=== PATIENT | male | born 1970 | race Caucasian/White ===

== ENCOUNTER 2018-04-08 09:12 | Inpatient (IN) ==
[2018-04-08] MEDS ORDERED: NS 1,000 ML IV ONE ×3 (09:38→14:15)
[2018-04-08 10:04] LABS: BASO# 0.04 X1000 (0.0-0.2); BASO% 0.2 % (0.0-0.8); HEMATOCRIT 51.3 % (42.0-52.0); HEMOGLOBIN 17.2 g/dL (14.0-18.0); IMM GRAN# 0.06 X1000 (0.0-0.04); IMM GRAN% 0.3 % (0.0-0.5); LYMPH# 1.42 X1000 (1.2-3.4); LYMPH% 7.1 % (20.5-51.1); MCH 30.4 PG (27-31); MCHC 33.5 g/dL (33-37); MCV 90.8 FL (81-99); MONO% 6.5 % (1.7-9.3); MPV 9.8 FL (7.4-10.4); NEUT# 17.28 X1000 (1.4-6.5); NEUT% 85.9 % (42.2-75.2); PLT 302 X1000 (130-400); RBC 5.65 XMIL (4.7-6.1); RDW 13.6 % (11.5-14.5)
[2018-04-08 10:16] LABS: AGAP 16; ALB/GLOB RATIO 1.1; ALKALINE PHOSPHATASE 105 U/L (32-122); AMYLASE 85 U/L (20-200); BUN 20 mg/dL (8-22); CALCIUM 10.5 mg/dL (8.8-10.2); CHLORIDE 96 mmol/L (98-107); COSMO 267; CREATININE 1.2 mg/dL (0.7-1.2); ESTIMATED GFR > 60; GLUCOSE 134 mg/dL (70-104); GOT 16 U/L (10-34); GPT 14 U/L (10-44); LIPASE 41 U/L (13-60); POTASSIUM 3.6 mmol/L (3.5-5.1); SODIUM 131 mmol/L (136-145); TCO2 19 mmol/L (25-35); TOTAL PROTEIN 9.7 g/dL (6.3-8.3)
[2018-04-08 13:48] LABS: URINE SOURCE CLEAN CATCH
[2018-04-08 13:56] LABS: BILIRUBIN URINE NEGATIVE (NEGATIVE); BLOOD URINE MODERATE (NEGATIVE); COLOR ORANGE; GLUCOSE URINE NEGATIVE (NEGATIVE); KETONE URINE NEGATIVE (NEGATIVE); LEUKOCYTES URINE LARGE (NEGATIVE); NITRITE URINE NEGATIVE (NEGATIVE); PH URINE 5.5; PROTEIN URINE 70 mg/dL (NEGATIVE); SP GRAVITY URINE 1.012; TURBIDITY URINE TURBID (CLEAR); UROBILINOGEN URINE NORMAL (NORMAL)
[2018-04-08 14:05] LABS: UR EPITHELIAL CELLS <10 /HPF (<10); URINE BACTERIA 4+ /HPF; URINE RBC <10 /HPF (<10); URINE WBC TNTC /HPF (<10)
[2018-04-08 14:15] LABS: URINE CASTS NONE SEEN; URINE CRYSTALS NONE SEEN; URINE SMALL ROUND CELLS TRANS PRESENT; URINE YEAST NONE SEEN
[2018-04-08] MEDS ORDERED: VANCOMYCIN 1 GM/NS 1 GM/250 ML IVPB IV ONE (14:16)
[2018-04-08 14:32] LABS: ALLEN TEST NO; BE -2.4 mmoll (-3.0-3.0); BLOOD TYPE ARTERIAL; HCO3-(ACT) 22.9 mmoll (20.0-26.0); METHB 1.5 % (0.0-1.5); O2(CT) 20.8 mL/dL (15.0-23.0); O2HB 93.1 % (95.0-99.0); PCO2(98.6) 24 mmHg (35-45); PO2(98.6) 68 mmHg (60-100); SAMPLE BLOOD; SAO2 97.2 % (95.0-100.0); THB 15.9 g/dL (11.5-17.4)
[2018-04-08 14:33] LABS: MODALITY ROOM AIR
[2018-04-08 14:39] LABS: ACETAMINOPHEN 6.8 ug/mL (10-30); SALICYLATES < 3.00 mg/dL (3-10)
[2018-04-08 14:51] LABS: FREE T4 1.02 ng/dL (0.93-1.70); TSH 0.8 uIUmL (0.27-4.20)
[2018-04-08 14:55] LABS: UR AMPHETAMINES QUAL NONE DETECTED (NONE DETECT); UR BARBITUATES QUAL NONE DETECTED (NONE DETECT); UR BENZODIAZEPIN QUAL NONE DETECTED (NONE DETECT); UR CANNABINOIDS QUAL PRESUMPTIVE POSITIVE (NONE DETECT); UR COCAINE QUAL NONE DETECTED (NONE DETECT); UR METHADONE QUAL NONE DETECTED (NONE DETECT); UR OPIATES QUAL NONE DETECTED (NONE DETECT); UR OXYCODONE QUAL NONE DETECTED (NONE DETECT); UR PCP QUAL NONE DETECTED (NONE DETECT)
[2018-04-08 15:12] LABS: ACETONE SERUM NEGATIVE (NEGATIVE)
--- NOTE | 2018-04-08 15:23 | Diag Imaging Result Doc PS360 ---
EXAM: CT THORAX/ABD/PELVIS W/CON HISTORY: sepsis, source unknown TECHNIQUE: 1. CT chest with intravenous contrast 2. CT abdomen and pelvis with intravenous contrast COMPARISON: None. FINDINGS: Chest: No pleural effusions. No cardiomegaly. No thoracic aortic aneurysm or dissection. No enlarged lymph nodes. There are multiple old right rib fractures. Moderate emphysematous changes with scarring in the apices. No infiltrates or consolidation. No bronchiectasis. Abdomen and pelvis: There is mild fatty infiltration of the liver. No focal hepatic abnormality. Normal spleen, pancreas, and adrenal glands. No calcified gallstones or adjacent inflammation. There is a typical enhancement of the upper right kidney. No hydronephrosis. No aortic aneurysm. No bowel obstruction. The urinary bladder is distended. There is mild thickening to the wall. Normal prostate. No ascites. No abscess. IMPRESSION: Chest: 1. Emphysema with fibrosis 2. No pneumonia Abdomen and pelvis: 1. Pyelonephritis and possible cystitis 2. Fatty infiltration of the liver This exam was performed using automated exposure control, adjustment of mA or kV according to patient size, and/or use of iterative reconstruction technique. Electronically signed by Indio Thomas 04/08/2018 3:21 PM
--- NOTE | 2018-04-08 15:26 | Diag Imaging Result Doc PS360 ---
EXAM: CT HEAD W/O CONTRAST HISTORY: ams TECHNIQUE: CT head without contrast COMPARISON: None. FINDINGS: No parenchymal hemorrhage. No epidural or subdural hematoma. No subarachnoid hemorrhage. 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 Postsurgical changes in the right temporal region. Atrophy or small old left temporal infarct. No mass identified on this noncontrasted exam. No hydrocephalus. No sinus opacification. IMPRESSION: 1.No hemorrhage 2.Small old left parietal infarct This exam was performed using automated exposure control, adjustment of mA or kV according to patient size, and/or use of iterative reconstruction technique. Electronically signed by Indio Thomas 04/08/2018 3:23 PM
[2018-04-08] MEDS ORDERED: MOTRIN PO ONE (16:56)
[2018-04-08] MEDS: TYLENOL PO PRN (16:57)
[2018-04-08] MEDS: NS 1,000 ML IV SCH (16:58)
[2018-04-08] MEDS: ZOSYN 3.375 GM in NS 50 ML IV SCH ×2 (16:58→21:14)
--- NOTE | 2018-04-08 17:37 | HISTORY AND PHYSICAL ---
PRIMARY CARE PHYSICIAN: None. CHIEF COMPLAINT: Fever, chills. HISTORY OF PRESENT ILLNESS: Mr. Leonard is a 48-year-old male with a history of traumatic brain injury, traumatic pneumothorax with subsequent permanent cognitive disability, questionable seizures and nicotine dependence who presents with malaise, fever and chills. The patient is unable to give any type of history; his sister at the bedside is able to answer most questions. Mr. Leonard is an unfortunate victim of a traumatic brain injury as he fell off a roof last November suffering major intracranial hemorrhage and pneumothorax requiring craniotomy and chest tube placement. Since that time, he suffered what appears to be irreversible cognitive disability. Yesterday, he actually came to the ER and was dropped off by one of his brothers because he was complaining of fever and chills. He had a chest x-ray done in the ER waiting room and then left without being seen. He then walked to his sister's house which was apparently within close proximity. When he arrived at her house, he was visibly shaking and complaining of fever and chills. She tried to get him to come back to the ER last night but he refused. However, his temperature was 102.8 today and he reluctantly agreed to come back to the ER. In the ER, labs were done which showed a white count of 20,000 with an elevated anion gap metabolic acidosis. Chest x-ray done yesterday evening was negative for acute process although there was question of fibrotic changes around the area of his chest tube. The sister states that he has not been throwing up or c/o diarrhea. He has not been coughing anything up or complaining of any focal pain. He is slightly hypotensive with a blood pressure in the high 90s to low 100s and he is tachycardic in the 120s and his O2 SAT is around 93% on room air. He will need admission for further treatment and observation. PAST MEDICAL HISTORY: 1. 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 2. Traumatic pneumothorax, status post chest tube placement, since resolved. 3. Nicotine dependence. 4. Question of narcotic abuse. His sister does state that he will take an occasional pain pill illicitly. PAST SURGICAL HISTORY: He had a craniotomy and chest tube placement in 11/2017. SOCIAL HISTORY: He smokes a pack a day. He lives with his brother who is currently not present. He is not . He has no children. He is permanently disabled. FAMILY HISTORY: Noncontributory. REVIEW OF SYSTEMS: Unable to obtain. ALLERGIES: Toradol and tramadol. MEDICATIONS: None. PHYSICAL EXAMINATION: VITAL SIGNS: Blood pressure is 94/47, heart rate is 116, O2 SAT 95% on room air , temperature is 99.1, respirations of 30. GENERAL: This is a disheveled and chronically ill-appearing 48-year-old male lying in hospital bed in moderate distress. NEUROLOGIC: The patient is lying in bed with his covers over his head and he is able to talk but his speech pattern is almost incomprehensible. He is able to state that he is at [facility] but otherwise disoriented. He does follow commands without focal deficits. HEENT: Head is atraumatic. He does have scarring to the scalp and his face appears slightly asymmetric. Pupils are equal, round and reactive to light. Oral mucosa is extremely dry with very poor dentition. NECK: Supple. Trachea is midline. There is no JVD. CHEST: Diminished at the bases but essentially clear to auscultation. Around the area of his right thorax, mid-axillary line, a stitch was noted in the area of his previous chest tube. It has clearly been there for some time. This stitch was pulled and sent to lab for culture. CV: Regular rate and rhythm. S1, S2 noted. GI: He does have some grimacing to palpation but his abdomen is overall soft, with normoactive bowel sounds. EXTREMITIES: Without edema. Pulses are 1+ bilaterally. DIAGNOSTIC DATA: Chest x-ray done yesterday evening shows increased interstitial markings believed to be fibrosis with multiple old right rib fractures. There are no pleural effusions, cardiomegaly or consolidations. LABORATORY DATA: WBC 20.1, hemoglobin 17.2, hematocrit 51.3, platelet count 302 ,000. Sodium 131, potassium 3.6, chloride 96, CO2 19, anion gap 16, BUN 20, creatinine 1.2, glucose 134, calcium 10.5, magnesium 2.1. LFTs within normal limits. Protein 9.7, albumin 5, amylase 85, lipase 41, lactic acid 1.4. ASSESSMENT AND PLAN: 1. Sepsis: The patient has a white count of 20,000 with a left shift. He is also acidotic with a normal lactate. Unclear as to the source at this time. Given the level of confusion and agitation, he will need to be fully evaluated for source. We will check a head CT as well as thorax, abdomen and pelvis. We will give him 1 g of vancomycin and Zosyn now , obtain blood and sputum cultures. We will also send stitch that was embedded in the chest wall for culture as well, although that area was without any real signs of infection. We are also awaiting urinalysis. We will continue aggressive fluid resuscitation as he is quite volume depleted. 2. Encephalopathy: His sister at the bedside states that his mentation is at current baseline. However, he is a bit more agitated than usual. We are checking a head CT, ABGs, drug screen, alcohol level, thyroid function, B12, folate and scanning his head, thorax, abdomen and pelvis. 3. Elevated anion gap, metabolic acidosis: The patient has a normal lactate but he is volume depleted but we will check ABGs, salicylate, acetaminophen and acetone levels. We will continue aggressive fluid resuscitation and go from there. 4. History of traumatic brain injury with subsequent cognitive disability: Aware. Head CT is pending. 5. DVT prophylaxis with SCDs. Further recommendations to follow. Patient seen and examined by me face to face, all the laboratory, vitals signs and images were reviewed, his abdomen CT scan is positive for right nephrolithiasis, he is having fever, more confused, weak, he will be placed on antibiotics, IV fluids, will be transfer to [facility] unit, I agree with the ACTIVITIES LEADER's assessment and plan, Herminio Haro MD. Dictated by OBDULIO Betancur for Herminio Lazo MD cc: OBDULIO Betancur MD [facility]
[2018-04-09] MEDS: NS 1,000 ML IV SCH ×4 (00:32→23:59)
[2018-04-09] MEDS: TYLENOL PO PRN ×3 (01:41→23:59)
[2018-04-09] MEDS: ZOSYN 3.375 GM in NS 50 ML IV SCH ×4 (02:27→21:36)
[2018-04-09 06:17] LABS: BASO# 0.03 X1000 (0.0-0.2); BASO% 0.2 % (0.0-0.8); EOS# 0.01 X1000 (0.0-0.7); EOS% 0.1 % (0.0-10.0); HEMATOCRIT 40.7 % (42.0-52.0); HEMOGLOBIN 13.6 g/dL (14.0-18.0); IMM GRAN# 0.03 X1000 (0.0-0.04); IMM GRAN% 0.2 % (0.0-0.5); LYMPH# 0.82 X1000 (1.2-3.4); LYMPH% 6.3 % (20.5-51.1); MCH 31.2 PG (27-31); MCHC 33.4 g/dL (33-37); MCV 93.3 FL (81-99); MONO# 0.87 X1000 (0.11-0.59); MONO% 6.6 % (1.7-9.3); MPV 9.8 FL (7.4-10.4); NEUT# 11.34 X1000 (1.4-6.5); NEUT% 86.6 % (42.2-75.2); PLT 197 X1000 (130-400); RBC 4.36 XMIL (4.7-6.1); RDW 13.5 % (11.5-14.5)
[2018-04-09 06:19] LABS: AGAP 9; ALBUMIN 3.5 g/dL (3.5-5.0); ALKALINE PHOSPHATASE 71 U/L (32-122); BUN 14 mg/dL (8-22); CALCIUM 8.6 mg/dL (8.8-10.2); CHLORIDE 109 mmol/L (98-107); COSMO 277; CREATININE 0.9 mg/dL (0.7-1.2); ESTIMATED GFR > 60; GLUCOSE 119 mg/dL (70-104); GOT 14 U/L (10-34); GPT 13 U/L (10-44); MAGNESIUM 1.9 mg/dL (1.5-2.7); POTASSIUM 3.8 mmol/L (3.5-5.1); SODIUM 138 mmol/L (136-145); TCO2 20 mmol/L (25-35); TOTAL BILIRUBIN 0.37 mg/dL (0.20-1.00)
[2018-04-09 07:56] LABS: BANDS 2 % (0-1); LYMPHS 6 % (21-51); SEGS 90 % (42-75)
--- NOTE | 2018-04-09 07:59 | PROGRESS NOTE ---
DATE: 04/09/2018 SUBJECTIVE: Patient is still complaining of chills but he feels a little bit better compared with yesterday. Also, he is more awake. He has a history of traumatic brain injury resulting in permanent cognitive disability but he is answering most of my questions and following commands. I will start this patient on a diet. OBJECTIVE: Vital Signs: Temperature 98.1 degrees, pulse 85, respiratory rate 24, blood pressure 101/60, oxygen saturation 96 on room air. HEENT: Head normocephalic. No trauma. PERRLA. Poor dentition. Neck: Supple. No JVD. Central trachea. Chest: Clear to auscultation. No wheezing. No rales. Abdomen: Soft, nontender, nondistended. No hepatosplenomegaly. Extremities: No edema. No clubbing. No cyanosis. Neurological Examination: The patient is alert. He is oriented. He is following commands. Moving all 4 extremities. Laboratory: WBC 13, hemoglobin 13.6, hematocrit 40.7, platelets 197,000. Sodium 138, potassium 3.8, chloride 109, bicarbonate 20, BUN 14, creatinine 0.9, glucose 119, calcium 8.6, albumin 3.5. ASSESSMENT AND PLAN: 1. Sepsis, likely secondary to right pyelonephritis. We will continue with intravenous antibiotics, Zosyn. WBC decreased from 20 to 13. The patient seems to be more awake and hydrated. He is not complaining of burning sensation today but yesterday, he told me that he was having dysuria. Continue with Tylenol as needed for fever. 2. Right pyelonephritis. As above. 3. Encephalopathy. This patient has a baseline cognitive disorder but today, he seems to be more awake and cooperative. He is following commands. Probably, this is his baseline. 4. Anion gap metabolic acidosis, resolved, likely secondary to the infectious process and dehydration. 5. History of traumatic brain injury with subsequent cognitive disability, aware. 6. Deep vein thrombosis prophylaxis with sequential compression devices. 7. Drug abuse. We have a positive urine toxicology that showed cannabinoids. This patient has been advised against drug use. I will continue with daily cessation education. cc: Herminio Lazo MD
[2018-04-09] MEDS ORDERED: MOTRIN PO ONE (13:13)
[2018-04-10] MEDS: NS 1,000 ML IV SCH ×5 (03:01→22:34)
[2018-04-10] MEDS: ZOSYN 3.375 GM in NS 50 ML IV SCH ×4 (03:25→20:37)
[2018-04-10 05:51] LABS: BASO# 0.01 X1000 (0.0-0.2); BASO% 0.1 % (0.0-0.8); EOS# 0.02 X1000 (0.0-0.7); EOS% 0.3 % (0.0-10.0); HEMATOCRIT 38.3 % (42.0-52.0); HEMOGLOBIN 12.9 g/dL (14.0-18.0); IMM GRAN# 0.02 X1000 (0.0-0.04); IMM GRAN% 0.3 % (0.0-0.5); LYMPH# 1.03 X1000 (1.2-3.4); MCH 31.2 PG (27-31); MCHC 33.7 g/dL (33-37); MCV 92.5 FL (81-99); MONO# 0.82 X1000 (0.11-0.59); MONO% 10.4 % (1.7-9.3); MPV 10.2 FL (7.4-10.4); NEUT% 75.9 % (42.2-75.2); PLT 194 X1000 (130-400); RBC 4.14 XMIL (4.7-6.1); RDW 13.2 % (11.5-14.5)
[2018-04-10 06:04] LABS: AGAP 10; ALBUMIN 3.4 g/dL (3.5-5.0); ALKALINE PHOSPHATASE 66 U/L (32-122); BUN 9 mg/dL (8-22); CALCIUM 8.9 mg/dL (8.8-10.2); CHLORIDE 106 mmol/L (98-107); COSMO 269; CREATININE 0.7 mg/dL (0.7-1.2); ESTIMATED GFR > 60; GLUCOSE 111 mg/dL (70-104); GOT 18 U/L (10-34); GPT 16 U/L (10-44); MAGNESIUM 1.6 mg/dL (1.5-2.7); POTASSIUM 3.7 mmol/L (3.5-5.1); SODIUM 135 mmol/L (136-145); TCO2 19 mmol/L (25-35); TOTAL BILIRUBIN 0.34 mg/dL (0.20-1.00); TOTAL PROTEIN 6.9 g/dL (6.3-8.3)
[2018-04-10] MEDS: TYLENOL PO PRN ×3 (07:34→22:33)
--- NOTE | 2018-04-10 08:50 | PROGRESS NOTE ---
DATE: 04/10/2018 SUBJECTIVE: This patient is still having fever. WBC today is normal, decreased from 20 a couple days ago to 13 yesterday and today is 7.9. Urine output is adequate. The BUN and creatinine are normal but the patient is still having fever. Since this patient has a right pyelonephritis, since this patient is male, I would like to rule out any other problems like prostatitis, prostate abscess, or urinary retention. I will ask the urology department to evaluate this patient. OBJECTIVE: Vital Signs: Temperature 102.5 degrees, pulse 85, respiratory rate 21, blood pressure 104/63, oxygen saturation 96 on room air. HEENT: Head normocephalic. No trauma. PERRLA. Poor dentition. Neck: Supple. No JVD. Central trachea. Chest: Clear to auscultation. No wheezing. No rales. Abdomen: Soft, nontender, nondistended. No hepatosplenomegaly. Extremities: No edema. No clubbing. No cyanosis. Neurological Examination: At this moment, this patient is alert and oriented. He is following commands. He moves all 4 extremities. Laboratory: WBCs 7.9, hemoglobin 12.9, hematocrit 38.3, platelets 194,000. Sodium 135, potassium 3.5, chloride 106, bicarbonate 19, BUN 9, creatinine 0.7, glucose 111, calcium 8.9, albumin 3.4. ASSESSMENT AND PLAN: 1. Sepsis, likely secondary to right pyelonephritis. We will continue with intravenous Zosyn. WBC is normal today but he is still having fever. I will continue with intravenous fluids. I have consulted the urology department to evaluate the possibility of prostatitis or any other problem since he is a male with a urinary tract infection/pyelonephritis. 2. Right pyelonephritis, as above. 3. Encephalopathy. This patient has a baseline cognitive disorder but, today, he seems to be more awake and cooperative. He is following commands. He is answering some of my simple questions. 4. Anion gap metabolic acidosis, resolved. 5. History of traumatic brain injury with subsequent cognitive disability, aware. 6. Deep vein thrombosis prophylaxis with sequential compression devices. 7. Drug abuse. We have a positive urine toxicology that showed cannabinoids. This patient has been advised against drug use. I will continue with daily cessation education. 8. This patient states that he is feeling better and now he is not complaining of any kind of burning sensation during urination. Urine culture showed gram-negative rods. I will continue with Zosyn and I will monitor, pending urology evaluation. cc: Herminio Lazo MD
--- NOTE | 2018-04-10 10:23 | EKG Report ---
Test Performed on : 04/08/2018 09:34:34 AM Test Reason : ED. No order in [place] Blood Pressure : / mmHG Vent. Rate : 083 BPM Atrial Rate : 083 BPM P-R Int : 164 ms QRS Dur : 104 ms QT Int : 338 ms P-R-T Axes : 074 033 070 degrees QTc Int : 397 ms Normal sinus rhythm. Normal ECG When compared with ECG of 21-JUN-2013 12:26, No significant change was found Unconfirmed Result
[2018-04-10] MEDS: MOTRIN PO PRN (15:14)
[2018-04-10] MEDS: FLOMAX PO SCH (20:37)
[2018-04-11] MEDS: ZOSYN 3.375 GM in NS 50 ML IV SCH ×4 (03:29→20:47)
[2018-04-11] MEDS: MOTRIN PO PRN ×2 (03:34→18:11)
--- NOTE | 2018-04-11 05:33 | CONSULTATION ---
DATE OF CONSULTATION: 04/10/2018 ATTENDING PHYSICIAN: Sharron. REFERRING PHYSICIAN: Hospitalist. HISTORY OF PRESENT ILLNESS: This 48-year-old male was admitted with fevers, chills, and lower back pain. Evaluation revealed on CT scan focal right pyelonephritis, with bladder wall thickening. He denies any problems voiding. He states prior to this incident, he does not remember having any voiding problems. He has had traumatic brain injury, and has significant cognitive disability. He states he is not taking any medications for his prostate. He states he has never had kidney stones. PAST MEDICAL HISTORY: Taken from his chart, is traumatic brain injury, with permanent cognitive disability. He states he has no other medical problems. He states he is not taking any medications. PAST SURGICAL HISTORY: Craniotomy and chest tube placement after falling from a roof. Appendectomy. SOCIAL HISTORY: He uses tobacco, and states he smokes marijuana. He denies alcohol use. ALLERGIES: He is allergic to tramadol, ketorolac, and another medication that is listed on his chart. REVIEW OF SYSTEMS: He states he thinks he is in good health, and denies any problems with diabetes, heart disease, strokes, seizures, pulmonary, or bowel problems. Again, he has significant cognitive disability. PHYSICAL EXAMINATION: General: A thin, age-apparent, normally-developed white male, who is cooperative. HEENT: Normal for age. Lungs: Clear. Cardiovascular: Regular rate and rhythm. Abdomen: Well-healed right lower quadrant scar consistent with appendectomy. Soft, nontender. No hepatosplenomegaly or masses. Normal bowel sounds. Back: No CVA tenderness. : Uncircumcised male. Foreskin retracts. Both testes are down and palpably normal. No inguinal hernias. Rectal: Normal sphincter tone. Prostate about 30 g, smooth, and symmetric. Extremities: No clubbing, cyanosis, or edema. Neurologic: No focal deficits. IMPRESSION: 1. Febrile urinary tract infection. 2. Enlarged prostate, with some obstructive voiding symptoms. RECOMMEND: 1. Flomax 0.4 mg a day. 2. Continue IV antibiotics until afebrile, and then culture specific antibiotics. Thank you for this consultation. cc: Kamran Walker MD
[2018-04-11] MEDS: TYLENOL PO PRN ×3 (06:28→22:10)
[2018-04-11] MEDS: NS 1,000 ML IV SCH ×2 (06:30→15:04)
[2018-04-11 08:37] LABS: AGAP 10; ALB/GLOB RATIO 0.9; ALKALINE PHOSPHATASE 75 U/L (32-122); BUN 5 mg/dL (8-22); CALCIUM 8.3 mg/dL (8.8-10.2); CHLORIDE 107 mmol/L (98-107); COSMO 271; CREATININE 0.5 mg/dL (0.7-1.2); ESTIMATED GFR > 60; GLUCOSE 104 mg/dL (70-104); GOT 18 U/L (10-34); GPT 18 U/L (10-44); MAGNESIUM 1.7 mg/dL (1.5-2.7); POTASSIUM 3.3 mmol/L (3.5-5.1); SODIUM 137 mmol/L (136-145); TCO2 20 mmol/L (25-35); TOTAL BILIRUBIN 0.41 mg/dL (0.20-1.00); TOTAL PROTEIN 6.2 g/dL (6.3-8.3)
[2018-04-11 08:50] LABS: BASO# 0.01 X1000 (0.0-0.2); BASO% 0.2 % (0.0-0.8); EOS# 0.06 X1000 (0.0-0.7); EOS% 1.1 % (0.0-10.0); HEMOGLOBIN 11.5 g/dL (14.0-18.0); IMM GRAN# 0.05 X1000 (0.0-0.04); IMM GRAN% 0.9 % (0.0-0.5); LYMPH# 0.85 X1000 (1.2-3.4); LYMPH% 14.9 % (20.5-51.1); MCH 30.9 PG (27-31); MCHC 33.8 g/dL (33-37); MCV 91.4 FL (81-99); MONO# 0.79 X1000 (0.11-0.59); MONO% 13.9 % (1.7-9.3); MPV 10.3 FL (7.4-10.4); NEUT# 3.93 X1000 (1.4-6.5); PLT 173 X1000 (130-400); RBC 3.72 XMIL (4.7-6.1); RDW 12.9 % (11.5-14.5); WBC 5.69 X1000 (4.8-10.8)
--- NOTE | 2018-04-11 16:58 | PROGRESS NOTE ---
DATE: 04/11/2018 SUBJECTIVE: He came in with fever and chills. Has a history of traumatic brain injury, traumatic pneumothorax, subsequent permanent cognitive disability, questionable seizures, nicotine dependence. Presents with malaise, fever, and chills. The patient unable to give any type of history. His sister was at the bedside, answered most of the questions. Mr. Leonard is an unfortunate victim of a traumatic brain injury. He fell off a roof last November, suffering major intracranial hemorrhage and pneumothorax requiring craniotomy, chest tube placement. Since that time, he appears to have irreversible cognitive disability. The day before admission on 04/08/2018, he actually came to the emergency room. He was dropped off by his brother because he had complained of fever, chills. Had a chest x-ray done in the emergency room waiting room, and left without being seen. He then walked to his sister's house who was apparently within close proximity. When he arrived at her house, he was visibly shaking, complaining of fever and chills. She tried to get him to come back to the emergency room that night, but he refused. His temperature was 102.8 and he reluctantly agreed to come back to the emergency room where his white count showed 20,000, elevated anion gap, metabolic acidosis. Chest x-ray was negative, although there was question of fibrotic changes around the area where he had a chest tube. He has not been throwing up. No diarrhea. PAST MEDICAL HISTORY: Reviewed again: 1. 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 2. Traumatic pneumothorax, status post chest tube placement. 3. Nicotine dependence. 4. Questionable narcotic abuse. Sister states that he will take an occasional pain pill illicitly. PAST SURGICAL HISTORY: He has had a craniotomy and chest tube placement 11/2017. OBJECTIVE: So, he was admitted with sepsis, white count of 20,000, acidotic, normal lactate and felt it was probably urinary tract. Had CT of the thorax, abdomen, pelvis. All are unremarkable for acute pathology and confusion with encephalopathy. He has showed steady improvement but he is still spiking temperatures, still an elevated white count. Dr. Walker has been consulted. He felt he had febrile urinary tract infection, large prostate, some obstructive voiding symptoms. He has him on Flomax 0.4 mg a day and continue IV antibiotics though he is afebrile. He really wanted to go home today, but he spiked another temperature of 102 degrees. He agreed to stay in the hospital. Pulse is 96, respirations 21, blood pressure 141/78. Pupils are equal and round. Lungs are clear in all lung calderon. Cardiovascular exam regular rhythm and rate without murmur or S3. Abdomen is soft. Skin is warm and dry and he is requesting go home. LABS: White count yesterday was down to 5690, hematocrit 34, platelet count 173,000. Electrolytes: Sodium 137, potassium 3.3, chloride 107, bicarb 20, BUN 5, creatinine 0.5. ASSESSMENT AND PLAN: 1. Urinary tract infection with still some fever. Continue present antibiotics. Would like him to be 48 hours without fever. He is on intravenous Zosyn. 2. Right pyelonephritis, which is improving. 3. Encephalopathy. He has baseline cognitive disorder from his injury. His confusion is better. 4. Anion gap metabolic acidosis, resolved. 5. Traumatic brain injury with subsequent cognitive disability. 6. Deep venous thrombosis prophylaxis. Sequential compression devices in place. 7. History of drug abuse. Positive urine toxicology showed cannabinoids. So, I advised avoidance of drug use including marijuana. 8. Continue present orders Flomax 0.4 mg at bedtime, normal saline at 125 mL an hour and Zosyn 3.375 g IV q.6 hours. cc: Frank Ibrahim MD
[2018-04-11] MEDS: FLOMAX PO SCH (20:47)
[2018-04-12] MEDS: NS 1,000 ML IV SCH ×4 (00:51→22:17)
[2018-04-12] MEDS: ZOSYN 3.375 GM in NS 50 ML IV SCH ×4 (02:04→20:11)
[2018-04-12] MEDS: MOTRIN PO PRN ×3 (02:04→16:58)
[2018-04-12] MEDS: TYLENOL PO PRN ×2 (10:55→20:11)
[2018-04-12] MEDS ORDERED: MILK OF MAGNESIA PO ONE (12:00)
[2018-04-12] MEDS ORDERED: DULCOLAX PR PRN (12:01)
--- NOTE | 2018-04-12 13:48 | Diag Imaging Result Doc PS360 ---
EXAM: CHEST-2 VIEWS HISTORY: shortness of breath and diminished breath sound TECHNIQUE: Two views COMPARISON: 04/07/2018 FINDINGS: The lungs are hyperexpanded. Mild increased interstitial markings throughout both lungs. No cardiomegaly. There are tiny pleural effusions. No consolidation. There are multiple old rib fractures. IMPRESSION: Increased interstitial markings believed to be fibrosis Electronically signed by Indio Thomas 04/12/2018 1:46 PM
[2018-04-12] MEDS: FLOMAX PO SCH (20:11)
[2018-04-13] MEDS: MOTRIN PO PRN ×3 (01:23→17:50)
[2018-04-13] MEDS: ZOSYN 3.375 GM in NS 50 ML IV SCH ×4 (04:24→20:32)
[2018-04-13] MEDS: TYLENOL PO PRN ×2 (06:15→20:32)
[2018-04-13] MEDS: NS 1,000 ML IV SCH ×2 (09:15→15:18)
--- NOTE | 2018-04-13 19:16 | PROGRESS NOTE ---
DATE: 04/13/2018 SUBJECTIVE: He is feeling much better. He has not had any fever in the last 24 hours. A low- grade at 100.0. OBJECTIVE: Vital Signs: On exam, pulse 69, respirations 20, blood pressure 152/93. Eyes: Pupils are equal, round. Lungs: Are clear in all lung calderon. Cardiovascular: Regular rhythm and rate without murmur or S3. Abdomen: Soft. Skin: Warm and dry. LABS: Urine output 1275 mL. Chest x-ray, increased interstitial markings believed to be fibrosis. That was from yesterday. ASSESSMENT AND PLAN: 1. Urinary tract infection. Would like him to be afebrile for at least 48 hours. He is still on IV Zosyn. 2. Right pyelonephritis, which seems to be improving. 3. Encephalopathy. He has baseline cognitive disorder from an injury. 4. Anion gap acidosis, resolved. 5. Traumatic brain injury and subsequent cognitive disability. 6. Deep venous thrombosis prophylaxis on sequential stockings. cc: Frank Ibrahim MD
[2018-04-13] MEDS: FLOMAX PO SCH (20:32)
[2018-04-14] MEDS: ZOSYN 3.375 GM in NS 50 ML IV SCH ×2 (02:18→09:44)
[2018-04-14] MEDS: NS 1,000 ML IV SCH ×2 (02:36→09:45)
--- NOTE | 2018-04-14 07:25 | PROVIDER DOCUMENTATION ---
This chart was entered by Lisa Solis Scribe, acting as scribe for Christopher Mcneil MD. HPI-General Adult - General Chief Complaint: Possible Sepsis-D Stated Complaint: RETURN/RECHECK Time Seen by Provider: 04/08/18 09:35 Source: patient Allergies/Adverse Reactions: Patient Allergies Allergy/AdvReac Type Severity Reaction Status Date / Time ketorolac tromethamine * Allergy HIVES Verified 04/04/17 14:45 [From Toradol] tramadol Allergy ITCHING Verified 04/04/17 14:45 Home Medications: Home Medication List Medication Instructions Recorded Confirmed Last Taken Type NK [No Home Medications] 04/08/18 04/08/18 Unknown History - History of Present Illness -Gen Adult Nature of Presenting Problems: 48yom c/o body aches, 102 fever, and chills for 2 days with chronic neck pain from previous injury. He reports he came to the [facility] ED last night and LWBS. The patient's sister reports that the patient had a fall accident at work in November 2017, had a craniotomy, and was hospitalized for a month at [facility]. He additionally had rib fractures from the accident. She reports she has noticed personality changes and cognitive changes in the patient since his procedure. The patient did have a vasovagal reaction when blood was drawn and became pale, but has now returned to normal color. He denies any medications or allergies to medications. He denies cough or any new rashes. He denies nausea, vomiting, diarrhea, cp, and sob. Location of Pain/Injury: reports: neck (chronic), generalized (body aches) Pain Radiation: reports: no radiation Quality of Pain: reports: aching Severity: reports: moderate Onset/Duration: reports: 2 days ago Timing: reports: still present, intermittent, constant Context/Activities at Onset: reports: none Modifying Factors: improves with: nothing Associated Symptoms: reports: fever/chills, other (body aches, chronic neck pain from previous injury.) Similar Symptoms Previously?: No Recently seen or treated by another doctor?: No Review of Systems - Adult - REVIEW OF SYSTEMS - ADULT Constitutional: reports: chills, fever Eyes: denies: discharge, dry eyes Ears, Nose, Mouth & Throat: denies: ear discharge, ear pain Cardiovascular: denies: chest pain, palpitations Respiratory: denies: cough, shortness of breath Gastrointestinal: denies: abdominal pain, diarrhea, nausea, vomiting Genitourinary: denies: dysuria, hematuria Musculoskeletal: reports: muscle aches (body aches), neck pain. denies: back pain Integumentary: reports: no symptoms reported Neurological: denies: dizziness/vertigo, headache/migraines Psychiatric: reports: no symptoms reported Endocrine: reports: no symptoms reported Hematologic/Lymphatic: reports: no symptoms reported Allergic/Immunologic: reports: no symptoms reported All Other Systems: Reviewed and Negative Past History - Adult - PAST MEDICAL HISTORY-ADULT Review of Records: reports: Old Records Reviewed, Nursing Assessment Review, Medications Reviewed Major Childhood Illnesses: reports: denies history Cardiovascular: reports: denies history Respiratory: reports: denies history Gastrointestinal: reports: denies history Obstetrical/Gynecological: reports: denies history Genitourinary: reports: denies history Musculoskeletal: reports: chronic pain Neurological: reports: denies history Psychiatric: reports: denies history Endocrine/Immune: reports: denies history Other Conditions: reports: denies history - PRIOR SURGERIES/PROCEDURES Surgical/Procedure History: reports: appendectomy - PRIOR HOSPITALIZATIONS Prior Hospitalizations: reports: for similar symptoms (broken back) - IMMUNIZATION STATUS Childhood Immunizations: See Nurse Assessment Flu Vaccine: See Nurse Assessment - FAMILY HISTORY Family History: reviewed, not pertinent - SOCIAL HISTORY Smoking: cigarettes, less than 1 pack/day Substance Use: denies Living Situation: family Physical Exam-General - PHYSICAL EXAM-ADULT Initial Vital Signs Reviewed: Yes - CONSTITUTIONAL General Appearance: alert, no apparent distress, thin - EYES Eyes: PERRL/EOMI, pink conjunctivae - HEAD, EARS, NOSE, MOUTH & THROAT HENMT: normocephalic/atraumatic, moist mucous membranes - NECK Neck: limited range of motion, other (chronic neck pain from previous injury.) - RESPIRATORY Respiratory: other (dull R side). negative: crackles, rales, rhonchi, wheezing - CARDIOVASCULAR Cardiovascular: no murmur, tachycardia - GASTROINTESTINAL (ABDOMEN) Abdominal Exam: non tender, soft - MUSCULOSKELETAL Extremity: non-tender, no pedal edema - SKIN Integumentary: normal color, warm/dry - NEUROLOGIC Neurologic: grossly normal, no motor/sensory deficits - PSYCHIATRIC Psych/Mental Status: normal mood/affect, normal thought content, normal thought process, oriented x 3 Progress - PLAN OF CARE/RESULTS Progress/Plan/Lab Results: Vital Signs - 8 hr 04/08/18 09:19 04/08/18 09:53 Temperature 99.1 F Pulse Rate 123 H 91 H Respiratory Rate 20 16 Blood Pressure 102/64 94/47 O2 Sat by Pulse Oximetry 95 Laboratory Results - last 24 hr 04/08/18 04/08/18 09:33 09:33 WBC 20.10 H RBC 5.65 Hgb 17.2 Hct 51.3 MCV 90.8 MCH 30.4 MCHC 33.5 RDW Std Deviation 13.6 Plt Count 302 MPV 9.8 Immature Gran % (Auto) 0.3 Neut % (Auto) 85.9 H Lymph % (Auto) 7.1 L Clinch % (Auto) 6.5 Eos % (Auto) 0.0 Baso % (Auto) 0.2 Immature Gran # (Auto) 0.06 H Neut # (Auto) 17.28 H Lymph # (Auto) 1.42 Clinch # (Auto) 1.30 H Eos # (Auto) 0.00 Baso # (Auto) 0.04 Plasma Lactate 1.4 Orders Category Date Time Status AMYLASE [CHEM] Stat Lab 04/08/18 09:33 Received CBC WITH ELECTRONIC DIFF [HEME] Stat Lab 04/08/18 09:33 Completed COMPREHENSIVE METABOLIC PANEL [CHEM] Stat Lab 04/08/18 09:33 Received Flu Swab [INFLUENZA SCREEN A/B] Stat Lab 04/08/18 09:33 Received LACTATE, PLASMA [CHEM] Stat Lab 04/08/18 09:33 Completed LIPASE [CHEM] Stat Lab 04/08/18 09:33 Received URINALYSIS W/POSS RFLX CULT [URINALYSIS] Stat Lab 04/08/18 09:23 Uncollected 0.9% Sodium Chloride Inj [Ns] 1,000 ml Med 04/08/18 09:38 Active IV 999 mls/hr Result Diagrams: 04/11/18 07:35 04/11/18 07:35 - EKG 1 Time of EKG reading by physician:: 09:36 EKG Read and Signed by:: Christopher Mcneil Rate: 83 Rhythm: Normal sinus rhythm Lindsey: normal QRS: normal DE Interval: normal ST Wave: normal - CONSULTS/PCP/HOSPITALIST Notification #1 *Consult/PCP/Hospitalist*: Dr. Clark Time Discussed: 13:24 Consult Disposition: Admit Departure - Departure Date of Disposition Decision: 04/08/18 Time of Disposition Decision: 11:45 DIAGNOSIS: Sepsis Disposition: ADMITTED INPATIENT 09 Certified Medical Emergency: Emergent Condition: Stable - Critical Care Note This patient required my direct & personal management of CC.: No Attestation - Physician/ LINH Attestation Patient care was provided by Advanced Practice Provider:: No The physician spent face to face time with patient:: Yes Advanced Practice Provider documentation review:: Supervising physician onsite and consulted in the evaluation and care of this patient. The physician did have a face to face encounter with the patient. This chart was documented by the indicated scribe, (Lisa Solis, Amie) and accurately reflects the services I performed and decisions made by me, Christopher Mcneil MD, as attested by the provider's signature.
[2018-04-14 08:03] VITALS: BP 139/75
--- NOTE | 2018-04-14 10:36 | DISCHARGE SUMMARY ---
ADMISSION DATE: 04/08/2018 DISCHARGE DATE: 04/14/2018 HISTORY: This is a 48-year-old who presented with fever and chills. He has no primary care physician. He has a history of traumatic brain injury, traumatic pneumothorax, subsequent permanent cognitive disability, questionable seizures, and nicotine dependence, who presented with malaise, fever, and chills. The patient was unable to give any type of history. Sister and family gave most of it. This is an unfortunate victim of a traumatic brain injury, fell off a roof last November with major intracranial hemorrhage pneumothorax requiring craniotomy and chest tube placement came in the day before to the emergency room, dropped off by his brother, and he was complaining of fever and chills, but he left without being seen. He walked to his sister's house, which is apparently in close proximity. When he arrived at her house, he was visibly shaking, complaining of fever and chills. She tried to get him to come back to the emergency room, but he refused. He then developed temperature of 102.8 degrees, and reluctantly agreed to come to the emergency room. He appeared to have sepsis and anion gap metabolic acidosis. He had urinary tract infection treated with IV antibiotics. His cultures grew out Staphylococcus epidermidis and Klebsiella pneumonia. Dr. Daniel Walker was consulted for urology. He had a large prostate, and felt he had febrile urinary tract infection, so we continued antibiotics. He continued to have fevers so kept him until he did not have a fever for 48 hours. We are giving him piperacillin 3.375 g q.6 hours. I am going to put him on Levaquin 750 mg daily, and I will give him enough for 2 more weeks. His urine culture grew out Klebsiella pneumonia, and it was sensitive really to everything and sensitive to Levaquin. We will continue his home medicines of which he was not on any home medicines at home. We also have him on Flomax, and I will continue that. cc: Frank Ibrahim MD
== END 2018-04-14 13:40 | disposition home or self-care (01) | DRG 872 ==
LOC: ED 09:12 → EDIPHOLD 14:31 → SUATTDRO 14:31 → 3S 16:15 → 3N 04-10 10:26
PROVIDERS: ATTEND Emergency Medicine
CPT/HCPCS: 70450; 71020; 71046; 71260; 74177; 80053; 80101; 80196; 80301; 80307; 80320; 80324; 80329; 80345; 80346; 80353; 80358; 80361; 80365; 81001; 82003; 82009; 82055; 82150; 82805; 83605; 83690; 83735; 83992; 84439; 84443; 85025; 87040; 87070; 87077; 87088; 87186; 87275; 87276; 87324; 87804; 93005; 96361; 96365; 99285; A9270; G0431; G0434; G0479; G0480; G6038; G6039; G6040; J2543; J3370; J7030; Q9967

== ENCOUNTER 2018-07-09 12:17 | Observation (INO) ==
[2018-07-09 13:11] LABS: BASO# 0.04 X1000 (0.0-0.2); BASO% 0.5 % (0.0-0.8); EOS# 0.16 X1000 (0.0-0.7); EOS% 2.1 % (0.0-10.0); HEMOGLOBIN 14.8 g/dL (14.0-18.0); IMM GRAN# 0.02 X1000 (0.0-0.04); IMM GRAN% 0.3 % (0.0-0.5); LYMPH# 2.68 X1000 (1.2-3.4); LYMPH% 35.8 % (20.5-51.1); MCH 31.2 PG (27-31); MCHC 35.2 g/dL (33-37); MCV 88.4 FL (81-99); MONO# 0.49 X1000 (0.11-0.59); MONO% 6.5 % (1.7-9.3); MPV 9.8 FL (7.4-10.4); NEUT% 54.8 % (42.2-75.2); PLT 253 X1000 (130-400); RBC 4.75 XMIL (4.7-6.1); RDW 13.7 % (11.5-14.5); WBC 7.49 X1000 (4.8-10.8)
[2018-07-09 13:15] LABS: PROTIME 12.4 Seconds (11.0-16.0)
[2018-07-09 13:16] LABS: INR 0.85; PTT 30.3 Seconds (22.3-41.8)
--- NOTE | 2018-07-09 13:22 | Diag Imaging Result Doc PS360 ---
EXAM: CT HEAD W/O CONTRAST HISTORY: headache TECHNIQUE: CT head without contrast COMPARISON: 06/28/2018 FINDINGS: No parenchymal hemorrhage. No epidural or subdural hematoma. No subarachnoid hemorrhage. No mass identified on this noncontrasted exam. No hydrocephalus. No sinus opacification. IMPRESSION: No hemorrhage. Negative brain CT without contrast. This exam was performed using automated exposure control, adjustment of mA or kV according to patient size, and/or use of iterative reconstruction technique. Electronically signed by Indio Thomas 07/09/2018 1:20 PM
--- NOTE | 2018-07-09 13:27 | Diag Imaging Result Doc PS360 ---
EXAM: CHEST-PORTABLE HISTORY: ams TECHNIQUE: Chest single view COMPARISON: 04/12/2018 FINDINGS: The lungs are well expanded. The heart is not enlarged. The vessels are not distended. There are no infiltrates. No effusion identified. There are multiple old rib fractures. IMPRESSION: No acute abnormality. Electronically signed by Indio Thomas 07/09/2018 1:24 PM
[2018-07-09 13:41] LABS: AGAP 11; ALB/GLOB RATIO 1.7; ALBUMIN 4.5 g/dL (3.5-5.0); ALKALINE PHOSPHATASE 86 U/L (32-122); BUN 10 mg/dL (8-22); CALCIUM 9.5 mg/dL (8.8-10.2); CHLORIDE 105 mmol/L (98-107); CK PROFILE 82 U/L (24-204); COSMO 279; CREATININE 0.7 mg/dL (0.7-1.2); ESTIMATED GFR > 60; GLUCOSE 103 mg/dL (70-104); GOT 17 U/L (10-34); GPT 18 U/L (10-44); POTASSIUM 4.7 mmol/L (3.5-5.1); SODIUM 140 mmol/L (136-145); TCO2 24 mmol/L (25-35); TOTAL BILIRUBIN 0.41 mg/dL (0.20-1.00); TOTAL PROTEIN 7.1 g/dL (6.3-8.3)
[2018-07-09] MEDS ORDERED: TYLENOL PO ONE (16:14)
[2018-07-09 16:43] LABS: URINE SOURCE CLEAN CATCH
[2018-07-09 17:02] LABS: BILIRUBIN URINE NEGATIVE (NEGATIVE); BLOOD URINE NEGATIVE (NEGATIVE); COLOR YELLOW; GLUCOSE URINE NEGATIVE (NEGATIVE); KETONE URINE NEGATIVE (NEGATIVE); LEUKOCYTES URINE NEGATIVE (NEGATIVE); NITRITE URINE NEGATIVE (NEGATIVE); PROTEIN URINE NEGATIVE (NEGATIVE); SP GRAVITY URINE 1.003; TURBIDITY URINE CLEAR (CLEAR); UROBILINOGEN URINE NORMAL (NORMAL)
[2018-07-09 17:03] LABS: UR EPITHELIAL CELLS <10 /HPF (<10); URINE BACTERIA NEGATIVE /HPF; URINE RBC <10 /HPF (<10); URINE WBC <10 /HPF (<10)
--- NOTE | 2018-07-09 17:15 | PROVIDER DOCUMENTATION ---
This chart was entered by Demetria Castelan Scribe, acting as scribe for Alex Mac MD. HPI-Neurological Disorder - General Chief Complaint: Headache Stated Complaint: SLURRED SPEECH,VILA Time Seen by Provider: 07/09/18 15:19 Source: patient Allergies/Adverse Reactions: Patient Allergies Allergy/AdvReac Type Severity Reaction Status Date / Time ketorolac tromethamine * Allergy HIVES Verified 07/03/18 09:56 [From Toradol] tramadol Allergy ITCHING Verified 07/03/18 09:56 Home Medications: Home Medication List Medication Instructions Recorded Confirmed Last Taken Type Gabapentin 300 mg PO QHS #12 cap 06/28/18 Unknown Rx Acetaminophen/Diphenhydramine 1 ea PO Q6H PRN #15 tab 07/03/18 Unknown Rx [Percogesic 325-12.5 mg Tablet] Acetaminophen [Tylenol] 1,000 mg PO Q4H PRN PRN 7 Days #30 07/09/18 Unknown Rx tab - History of Present Illness-Neuro Nature of Presenting Problem: 48 y/o male presents to ED with headache, word salad, and diaphoresis onset this morning. Pt reports he has had the headache since his brain surgery for skull fracture in November. Pt is alert and oriented. Headache Location: reports: global Severity: reports: severe Onset/Duration: reports: this morning Timing: reports: still present Context: reports: other (headache, word salad, diaphoresis) Character of Altered Mental Status: reports: N/A Any recent trauma/injury?: reports: none Character of Deficits: reports: impaired speech New weakness or altered sensation location:: reports: none Cognitive Baseline: alert, oriented x3 Gait Baseline: walks without assistance Associated Symptoms: reports: headache, diaphoretic, other (word salad) Similar Symptoms Previously?: Yes Recently seen or treated by another doctor?: Yes Review of Systems - Adult - REVIEW OF SYSTEMS - ADULT Constitutional: denies: chills, fever Eyes: reports: no symptoms reported Ears, Nose, Mouth & Throat: reports: no symptoms reported Cardiovascular: denies: chest pain, palpitations Respiratory: denies: cough, shortness of breath Gastrointestinal: denies: abdominal pain, diarrhea, nausea, vomiting Genitourinary: reports: no symptoms reported Musculoskeletal: denies: back pain, joint pain Integumentary: reports: other (diaphoresis). denies: hives Neurological: reports: headache/migraines, other (word salad). denies: dizziness/vertigo, seizure Psychiatric: reports: no symptoms reported Endocrine: reports: no symptoms reported Hematologic/Lymphatic: reports: no symptoms reported Allergic/Immunologic: reports: no symptoms reported All Other Systems: Reviewed and Negative Past History - Adult - PAST MEDICAL HISTORY-ADULT Review of Records: reports: Old Records Reviewed, Nursing Assessment Review, Medications Reviewed Major Childhood Illnesses: reports: denies history Cardiovascular: reports: denies history Respiratory: reports: denies history Gastrointestinal: reports: denies history Obstetrical/Gynecological: reports: denies history Genitourinary: reports: denies history Musculoskeletal: reports: chronic pain 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 on dangers of tobacco.: Discussed manners to quit use, and f/u contacts for add'l counseling. Substance Use: none/never Alcohol Use Frequency: occasionally Living Situation: family Physical Exam- Neurological - Physical Exam-Neuro Initial Vital Signs Reviewed: Yes General Appearance: appears well, alert, no apparent distress Eye Exam: bilateral eye: normal inspection, PERRL, EOMI HENMT: normocephalic/atraumatic, moist mucous membranes, normal ENT inspection Head Injury: no evidence of injury Neck: non-tender, full range of motion Respiratory: chest non-tender, lungs clear, normal breath sounds Cardiovascular: normal peripheral pulses, regular rate, rhythm Abdominal Exam: normal bowel sounds, non tender, soft Extremity: normal range of motion, non-tender, normal gait, normal inspection anthropometrist Exam: normal hearing, normal speech, PERRL Coordination/Gait: normal finger to nose, normal gait Motor/Sensory: no sensory deficit, no pronator drift, weak motor strength RUE, weak motor strength RLE Neurologic: motor weakness (RUE/RLE) Integumentary: normal color, warm/dry Psych/Mental Status: normal mood/affect, normal thought content, normal thought process Progress - PLAN OF CARE/RESULTS Progress/Plan/Lab Results: Vital Signs - 8 hr 07/09/18 12:21 07/09/18 13:59 Temperature 98.5 F 98.5 F Pulse Rate 77 56 L Respiratory Rate 18 18 Blood Pressure 160/90 127/86 O2 Sat by Pulse Oximetry 99 97 Laboratory Results - last 24 hr 07/09/18 07/09/18 07/09/18 12:26 12:45 12:45 WBC 7.49 RBC 4.75 Hgb 14.8 Hct 42.0 MCV 88.4 MCH 31.2 H MCHC 35.2 RDW Std Deviation 13.7 Plt Count 253 MPV 9.8 Immature Gran % (Auto) 0.3 Neut % (Auto) 54.8 Lymph % (Auto) 35.8 Shannon % (Auto) 6.5 Eos % (Auto) 2.1 Baso % (Auto) 0.5 Immature Gran # (Auto) 0.02 Neut # (Auto) 4.10 Lymph # (Auto) 2.68 Shannon # (Auto) 0.49 Eos # (Auto) 0.16 Baso # (Auto) 0.04 PT INR PTT (Actin FS) Sodium 140 Potassium 4.7 Chloride 105 Carbon Dioxide 24 L Anion Gap 11 BUN 10 Creatinine 0.7 Estimated GFR/1.73 m2 > 60 BUN/Creatinine Ratio 14 Glucose 103 POC Glucose 112 H Calculated Osmolality 279 Calcium 9.5 Total Bilirubin 0.41 AST 17 ALT 18 Alkaline Phosphatase 86 Creatine Kinase 82 Troponin T Total Protein 7.1 Albumin 4.5 Globulin 2.6 Albumin/Globulin Ratio 1.7 Urine Source Urine Color Urine Turbidity Urine pH Ur Specific Campbell Urine Protein Ur Glucose (Stick) Ur Ketones (Stick) Urine Blood Urine Nitrite Urine Bilirubin Urobilinogen Dipstick Urine Leukocytes Urine WBC (Auto) Urine RBC (Auto) U Epithel Cells (Auto) Urine Bacteria (Auto) 07/09/18 07/09/18 07/09/18 12:45 12:45 16:36 WBC RBC Hgb Hct MCV MCH MCHC RDW Std Deviation Plt Count MPV Immature Gran % (Auto) Neut % (Auto) Lymph % (Auto) Shannon % (Auto) Eos % (Auto) Baso % (Auto) Immature Gran # (Auto) Neut # (Auto) Lymph # (Auto) Shannon # (Auto) Eos # (Auto) Baso # (Auto) PT 12.4 INR 0.85 PTT (Actin FS) 30.3 Sodium Potassium Chloride Carbon Dioxide Anion Gap BUN Creatinine Estimated GFR/1.73 m2 BUN/Creatinine Ratio Glucose POC Glucose Calculated Osmolality Calcium Total Bilirubin AST ALT Alkaline Phosphatase Creatine Kinase Troponin T < 0.010 Total Protein Albumin Globulin Albumin/Globulin Ratio Urine Source CLEAN CATCH Urine Color YELLOW Urine Turbidity CLEAR Urine pH 6.0 Ur Specific Campbell 1.003 Urine Protein NEGATIVE Ur Glucose (Stick) NEGATIVE Ur Ketones (Stick) NEGATIVE Urine Blood NEGATIVE Urine Nitrite NEGATIVE Urine Bilirubin NEGATIVE Urobilinogen Dipstick NORMAL Urine Leukocytes NEGATIVE Urine WBC (Auto) <10 Urine RBC (Auto) <10 U Epithel Cells (Auto) <10 Urine Bacteria (Auto) NEGATIVE Orders Category Date Time Status Finger Stick Blood Sugar (ED) DIRECTED Care 07/09/18 12:35 Active CHEST-PORTABLE [RAD] Stat Exams 07/09/18 12:[address] HEAD W/O CONTRAST [CT] Stat Exams 07/09/18 12:36 Completed CBC WITH ELECTRONIC DIFF [HEME] Stat Lab 07/09/18 12:45 Completed CK PROFILE [SP CHEM] Stat Lab 07/09/18 12:45 Completed COMPREHENSIVE METABOLIC PANEL [CHEM] Stat Lab 07/09/18 12:45 Completed PROTIME WITH INR [COAG] Stat Lab 07/09/18 12:45 Completed PTT [COAG] Stat Lab 07/09/18 12:45 Completed TROPONIN T Stat Lab 07/09/18 12:45 Completed URINALYSIS [URINALYSIS] Stat Lab 07/09/18 16:36 Completed Acetaminophen [Tylenol] Med 07/09/18 16:14 Discontinued 1,000 mg PO NOW ONE Altered Mental Status Stat Oth 07/09/18 12:34 Ordered EKG [EKG] Stat Ther 07/09/18 12:35 Ordered A/P: TIA. Slurred speech moderately improved, has R U/L extremity weakness, some residual from previous brain surgery. Pt also has headache, gave tylenol as he is allergic to many different Rx.s Vitals stable. Result Diagrams: 07/09/18 12:45 07/09/18 12:45 - EKG 1 Time of EKG reading by physician:: 12:41 EKG Read and Signed by:: Richie Quinn EKG Interpretation (*Must complete 3 of following elements*): Abnormal Rate: 61 Rhythm: NSR [place]: normal QRS: RBB (Incomplete), LVH (voltage criteria) UT Interval: normal ST Wave: normal - XRAY 1 XRAY Study: Chest Impression: Normal (FINDINGS: The lungs are well expanded. The heart is not enlarged. The vessels are not distended. There are no infiltrates. No effusion identified. There are multiple old rib fractures. IMPRESSION: No acute abnormality. Electronically signed by Indio Thomas 07/09/2018 1:24 PM) - CT/MRI 1 CT Study: Head Impression: Normal (FINDINGS: No parenchymal hemorrhage. No epidural or subdural hematoma. No subarachnoid hemorrhage. No mass identified on this noncontrasted exam. No hydrocephalus. No sinus opacification. IMPRESSION: No hemorrhage. Negative brain CT without contrast. This exam was performed using automated exposure control, adjustment of mA or kV according to patient size, and/or use of iterative reconstruction technique. Electronically signed by Indio Thomas 07/09/2018 1:20 PM) - CONSULTS/PCP/HOSPITALIST Notification #1 *Consult/PCP/Hospitalist*: Dr. Quevedo Time Discussed: 17:21 Reason/Comments: Word salad, R sided weakness, headache Consult Disposition: Admit Departure - Departure Date of Disposition Decision: 07/09/18 Time of Disposition Decision: 17:21 DIAGNOSIS: TIA (transient ischemic attack), Tobacco abuse disorder Disposition: ADMITTED INPATIENT 09 Certified Medical Emergency: Emergent Condition: Stable Additional Freetext Instructions: ED Follow Up Instructions: You have been treated by a care provider in the Emergency Department. These instructions are being provided to you so you can have an understanding of how to care for yourself upon discharge. Upon discharge from the Emergency Department, you are responsible for making arrangements for follow-up care by a physician of your choice. Take all prescribed medications as directed. Return to the Emergency Department immediately for any new or worsening symptoms. You may call the Physician Referral phone number at [phone] to obtain a list of Physicians who are taking new patients. Prescriptions: Acetaminophen [Tylenol] 1,000 mg PO Q4H PRN PRN 7 Days #30 tab PRN Reason: Headache Referrals and Follow-Ups: None,PCP [Primary Care Provider] - Discharge Education: Steps to Quit Smoking, [id number] - Critical Care Note This patient required my direct & personal management of CC.: No Attestation - Physician/ LINH Attestation Patient care was provided by Advanced Practice Provider:: No The physician spent face to face time with patient:: Yes Advanced Practice Provider documentation review:: Supervising physician onsite and consulted in the evaluation and care of this patient. The physician did have a face to face encounter with the patient. - NIH Stroke Scale NIH Type: Initial Evaluation Level of Consciousness: 0-Alert LOC Questions (ask month and age): 0-Answers Both Correctly LOC Commands (ask to open & close eyes;make a fist, let go): 0-Obeys Both Correctly Best Gaze (horizontal eye movement): 0-Normal Visual (use finger movement, counting or visual threat): 0-No Visual Loss Facial Palsy (show teeth or raise eyebrows & close eyes tght: 0-Symmetrical Movement Motor Function-left arm: 0-Normal Motor Function-right arm: 2-Some Effort Against Campbell Motor Function-left le-Normal Motor Function-right le-Some Effort Against [place] Limb Ataxia([id number]-[id number], or heel to anderson): 0-No Ataxia Sensory(pin prick to face,arms,trunk,legs-compare side/side): 0-No Ataxia Best Language(name item/read sentence.Ex-Down to Earth): 0-No Aphasia Dysarthria(Pt read words or say words Ex.Mama,Tip-Top,Thanks: 0-Normal Articulation Extinction and Inattention: 0-Normal NIH Total Score: 4 Modified [place] Score Criteria: 1-no significant disability despite symptoms Stroke tPA Guidelines - Inclusion Criteria for IV tPA 18 years old or older: Yes Ischemic stroke with measurable deficit: No Onset <3 hours ago *OR* 3-4.5 hours ago: No - Exclusion Criteria for IV tPA Evidence of intracranial hemorrhage on CT: No Presentation suggest SAH: No CT reveals defined area of hypodensity: No Evidence of AVM, neoplasm, aneurysm: No Seizure at stroke onset: No Active internal bleeding or acute trauma: No Platelet Count Less Than 100,000: No Heparin Within Last 48 HRS (PTT >Lab normal limits): No INR > 1.7 (warfarin use): No Use IIB/IIIA inhibitors within 24 hours: No Serious Head Trauma Within Last 3 Months: No Arterial Puncture Within Last 7 Days: No Lumbar Puncture Within Last 7 Days: No Repeated systolic Blood Pressure >185 or Diastolic >110: No - Additional Exclusion Criteria for IV tPA Currently on Coumadin: No Patient older than 80: No Prior stroke and diabetes: No Baseline NIHSS score > 25: No - Relative Contraindications to IV tPA CT reveals extensive area of infarct (>1/3 MCA territory): No Minor or rapidly improving stroke symptoms: Yes Major Surgery or Serious Trauma In Previous 14 Days: No AMI within 3 months: No Gastrointestinal or Urinary Tract hemorrhage in Past 21 Days: No Post - AMI pericarditis: No Blood Glucose Less Than 50 mg/dl or Greater Than 400 mg/dl: No - Consultation Candidate for:: NOT A CANDIDATE Reason not a candidate:: Negative head CT and minor symptoms This chart was documented by the indicated scribe, (Demetria Castelan Scribe) and accurately reflects the services I performed and decisions made by Bubba garcia Christophe J., MD, as attested by the provider's signature.
[2018-07-09] MEDS ORDERED: LOVENOX SUBQ SCH (18:00)
--- NOTE | 2018-07-09 18:28 | HISTORY AND PHYSICAL ---
CHIEF COMPLAINT: Headache and apparently some slurred speech. HISTORY OF PRESENT ILLNESS: This is a 48-year-old male with past medical history of traumatic brain injury who presented to the emergency department complaining of headache and apparently slurred speech as well. According to ER physician, this problem started this morning, but patient is not able to differentiate when this problem with his speech started happening. He has been here in April 2018 for sepsis and upper respiratory infection and the physical examination showed his speech pattern is almost incomprehensible. It is really difficult to assess that problem. In any case, he reports that problem is still happening, but upon further questioning he is not sure he had a problem with speech or not. The patient is complaining now of headache that he has on and off and there is nothing new for him. ER evaluation also finds vitals completely normal as well as labs, so he is going to be admitted for observation for most likely a TIA if anything because I do not think this patient has a stroke. We will do an MRI tomorrow morning. PAST MEDICAL HISTORY: 1. 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 2. Traumatic pneumothorax status post chest tube placement. 3. Tobacco abuse. 4. According to the last note from the hospital questionable narcotic abuse. PAST SURGICAL HISTORY: Patient has a craniotomy in 2018 and also chest tube placement sometime. SOCIAL HISTORY: Patient continues to smoke 1 pack per day of cigarettes. The patient lives with sister. The patient is not , has no children. He is permanently disabled. FAMILY HISTORY: Noncontributory. ALLERGIES: The patient is allergic to Toradol and tramadol. PHYSICAL EXAMINATION: VITAL SIGNS: Temperature 98.5, heart rate 77, respiratory rate 18, blood pressure 160/90, O2 saturation 99% on room air. GENERAL: This is a chronically ill-appearing and disheveled 48-year-old male lying in bed in no acute distress. HEENT: Head is normocephalic, atraumatic. Poor dentition. Mucous membranes moist. NECK: No JVD noted. No carotid bruits. No lymphadenopathy. No thyromegaly. CARDIOVASCULAR: S1, S2 heard. No murmurs, gallops or rubs. Regular rate and rhythm. RESPIRATORY: Decreased breath sounds globally. The patient is not using any accessory muscles or having work of breathing. ABDOMEN: Soft. Nontender to palpation. Bowel sounds present. No organomegaly. EXTREMITIES: No clubbing, cyanosis or edema. Peripheral pulses present in both legs. NEUROLOGIC: The patient is able to move 4 extremities. Apparently cranial nerves 2 12 grossly normal. LABORATORY DATA: Reviewed. ASSESSMENT AND PLAN: 1. TIA. The patient is being admitted to the hospital for very questionable slurred speech. In any case, because we were called by ER physician we are going to do an MRI of the brain with and without contrast tomorrow. If that is normal, the patient can be discharged. 2. History of traumatic brain injury. Aware. 3. Headache. The patient has on and off headaches. Will start on Tylenol on this patient and will go from there. 4. Tobacco abuse. Patient advised to stop smoking tobacco. cc: Ramy Nathan MD
[2018-07-09] MEDS: DEMEROL PO PRN (21:09)
[2018-07-09] MEDS: ZOFRAN IV PRN (21:09)
[2018-07-10] MEDS: ZOFRAN IV PRN ×2 (03:38→09:08)
[2018-07-10] MEDS: DEMEROL PO PRN ×2 (03:38→09:08)
[2018-07-10 06:16] LABS: BASO# 0.02 X1000 (0.0-0.2); BASO% 0.3 % (0.0-0.8); EOS# 0.16 X1000 (0.0-0.7); EOS% 2.7 % (0.0-10.0); HEMATOCRIT 42.1 % (42.0-52.0); HEMOGLOBIN 14.5 g/dL (14.0-18.0); LYMPH# 2.17 X1000 (1.2-3.4); LYMPH% 36.3 % (20.5-51.1); MCH 30.7 PG (27-31); MCHC 34.4 g/dL (33-37); MCV 89.2 FL (81-99); MONO# 0.46 X1000 (0.11-0.59); MONO% 7.7 % (1.7-9.3); MPV 9.8 FL (7.4-10.4); NEUT# 3.17 X1000 (1.4-6.5); PLT 239 X1000 (130-400); RBC 4.72 XMIL (4.7-6.1); WBC 5.98 X1000 (4.8-10.8)
[2018-07-10 06:33] LABS: AGAP 9; BUN 9 mg/dL (8-22); CALCIUM 9.3 mg/dL (8.8-10.2); CHLORIDE 104 mmol/L (98-107); COSMO 275; CREATININE 0.7 mg/dL (0.7-1.2); ESTIMATED GFR > 60; GLUCOSE 104 mg/dL (70-104); POTASSIUM 4.3 mmol/L (3.5-5.1); SODIUM 138 mmol/L (136-145); TCO2 25 mmol/L (25-35)
--- NOTE | 2018-07-10 07:24 | EKG Report ---
Test Performed on : 07/09/2018 12:41:20 PM Test Reason : ams Blood Pressure : / mmHG Vent. Rate : 061 BPM Atrial Rate : 061 BPM P-R Int : 152 ms QRS Dur : 102 ms QT Int : 378 ms P-R-T Axes : 041 053 070 degrees QTc Int : 380 ms Normal sinus rhythm. Incomplete right bundle branch block Voltage criteria for left ventricular hypertrophy Abnormal ECG When compared with ECG of 28-JUN-2018 10:09, (Unconfirmed) No significant change was found Unconfirmed Result
[2018-07-10 11:35] VITALS: BP 101/66
--- NOTE | 2018-07-10 14:16 | DISCHARGE SUMMARY ---
ADMISSION DATE: 07/09/2018 DISCHARGE DATE: 07/10/2018 DISCHARGE DIAGNOSES: 1. Transient ischemic attack, resolved. 2. Traumatic brain injury. 3. Traumatic pneumothorax. 4. Tobacco abuse. CONSULTATIONS: None. PROCEDURES: CT of the head was unremarkable. HOSPITAL COURSE: In brief, this is a patient with a past medical history of traumatic brain injury who was seen in the emergency department for possible TIA symptoms. In this case, it was slurred speech. As I mentioned in my note from admission, I do not think this patient had any slurred speech. It is a residual problem from his accident. In the note from previous admission, it was documented that he had some baseline slurred speech. Initially, the plan was to have an MRI on this patient. Today, because of the holiday, it is closed. I do not think we need to do an MRI at this time, considering that all his symptoms are resolved and he is recommended to come back to the emergency department in case he has similar symptoms again. The patient is being released in stable condition. DISCHARGE PHYSICAL EXAMINATION: Vital Signs: Temperature 98.4, heart rate 56, respiratory rate 18, blood pressure 101/66, O2 saturation 97% on room air. General Examination: This is a chronically ill-appearing, 48-year-old, male, lying in bed, in no acute distress. Cardiovascular Examination: S1 and S2 heard. No murmurs, gallops, or rubs. Regular rate and rhythm. Respiratory Examination: Decreased breath sounds globally. Patient is not using any accessory muscles or having work of breathing. Abdomen: Soft, nontender to palpation. Bowel sounds present. No organomegaly. Extremities: No clubbing, cyanosis, or edema. Peripheral pulses present in both legs. Neurological Examination: Speech in this patient is a little bit slurred but apparently it is his baseline. The description from previous admission is the same. The patient is able to move 4 extremities. Gait is unremarkable. DISCHARGE DISPOSITION: Home to self-care. LIST OF MEDICATIONS: We are just providing medication in this case which will be Demerol for a few days. cc: Ramy Nathan MD
== END 2018-07-10 13:51 | disposition home or self-care (01) ==
LOC: ED 12:17 → INTOOBSV 18:46 → EDIPHOLD 18:46 → 4N 19:40
PROVIDERS: ATTEND Internal Medicine
CPT/HCPCS: 70450; 71010; 71045; 80048; 80053; 81001; 82550; 82948; 84484; 85025; 85610; 85730; 93005; A9270; J1650; J2405; XXXXX